=== PATIENT | female | born 1955 | race Caucasian/White ===

== ENCOUNTER 2024-05-30 21:33 | Emergency (ER) | payer BC, MEDICARE ==
[2024-05-30] MEDS: Alum Hydroxide/Mag Hydroxide 15 ML, Lidocaine 2% 15 ML PO ONE (22:11)
== END 2024-05-30 22:55 | disposition home or self-care (01) ==
LOC: FB.ED 21:33
DX: K21.9 Gastro-esophageal reflux disease without esophagitis (principal); K22.4 Dyskinesia of esophagus; Z79.899 Other long term (current) drug therapy
CPT/HCPCS: 99284; A9270